=== PATIENT | male | born 1960 | race Asian ===

== ENCOUNTER 2016-09-19 07:46 | Day surgery (SDC) | payer OTHER ==
[~2016-09-19] VITALS: Ht 157.5 cm; Wt 64.4 kg
[2016-09-19] VITALS (12 sets, daily range): BP systolic 112–161; BP diastolic 62–91
--- NOTE | 2016-09-19 07:17 | Pre-Procedure Note/Attestation ---
Pre-Procedure Note/Attestation Complete Prior to Procedure Planned Procedure: right Procedure Narrative: shoulder arthroscopy rc repair,sad Indications for Procedure Pre-Operative Diagnosis: right shoulder rct, impingement Attestation I attest that I discussed the nature of the procedure; its benefits; risks and complications; and alternatives (and the risks and benefits of such alternatives ), prior to the procedure, with the patient (or the patient's legal access services representative). I attest that, if there was a reasonable possibility of needing a blood transfusion, the patient (or the patient's legal access services representative) was given the [facility] standardized written summary, pursuant to the [place] Blood Safety Act ([place] Health and Safety Code # 1645, as amended). I attest that I re-evaluated the patient just prior to the surgery and that there has been no change in the patient's H&P, except as documented below: OPAL DE DIOS September 19, 2016 07:17
--- NOTE | 2016-09-19 07:18 | Operative Note - PDOC ---
Operative Note Operative Note Pre-op Diagnosis: right shoulder rct, impingement Procedure: see op report Post-op Diagnosis: same as pre-op plus Operative Findings: consistent w/pre-op dx studies Anesthesia: regional Specimen: none Complications: none Condition: stable Estimated Blood Loss: none Implant(s) used?: Yes OPAL DE DIOS September 19, 2016 07:18
[~2016-09-19 07:46] MED LIST: LOVASTATIN10 MG ORAL; METOPROLOL TART50 M1 ORAL; TRIAMTERENE-HC1 EAC7 ORAL; ceFAZolin 1gm in D5W 55ml IVP ONE; celeBREX 200mg Cap **SURGERY PATIENTS ONLY ORAL ONE; oxyCONTIN 20mg tab ORAL ONE
[2016-09-19] MEDS ORDERED: LR 1000ml 1,000 ML IVLG SCH (08:26)
[2016-09-19] MEDS ORDERED: Metoclopramide 10mg/2ml Inj IVP PRN (08:30)
[2016-09-19] MEDS ORDERED: Oxycodone/Acetaminophen 5-325 ORAL PRN (08:30)
[2016-09-19] MEDS ORDERED: DiphenhydrAMINE 50mg/ml Inj IVP PRN (08:30)
[2016-09-19] MEDS ORDERED: Ketorolac 30mg Inj IV PRN (08:30)
[2016-09-19] MEDS ORDERED: fentaNYL 100 mcg/2 mL IV PRN (08:30)
[2016-09-19] MEDS ORDERED: Hydromorphone 0.5mg/0.5ml inj IVP PRN (08:30)
[2016-09-19] MEDS ORDERED: LORazepam Inj 2mg/ml 1ml IV PRN (08:30)
[2016-09-19] MEDS ORDERED: Ketorolac 60mg Inj IV PRN (08:30)
[2016-09-19] MEDS ORDERED: Atropine Inj 1mg/10ml Syr IV PRN (08:30)
[2016-09-19] MEDS ORDERED: Norco 5mg/325mg tab ORAL PRN ×2 (08:30→14:01)
[2016-09-19] MEDS ORDERED: Midazolam 2mg/2ml Inj IVP PRN (08:30)
[2016-09-19] MEDS ORDERED: Meperidine 25mg/0.5ml Inj IV PRN (08:30)
[2016-09-19] MEDS ORDERED: Norco 7.5mg/325mg tab ORAL PRN (08:30)
--- NOTE | 2016-09-19 08:33 | Anethesia Preoperative Eval ---
Anesthesia Pre-op PMH/ROS General Date of Evaluation: September 19, 2016 Time of Evaluation: 09:47 Anesthesiologist: Donna ASA Score: ASA 2 Mallampati Score Class I : Soft palate, uvula, fauces, pillars visible Class II: Soft palate, uvula, fauces visible Class III: Soft palate, base of uvula visible Class IV: Only hard plate visible Mallampati Classification: Class II Surgeon: Nilson Diagnosis: R Sholuder Pain Surgical Procedure: R Shoulder Arthroscopy, SAD Anesthesia History: none Family History: no anesthesia problems Allergies: Coded Allergies: No Known Allergies (Unverified , 09/18/16) Medications: see eMAR Past Medical History Cardiovascular: Reports: HTN, other - HL Pulmonary: Reports: other - Pneumonia Anesthesia Pre-op Phys. Exam Physician Exam Last Vital Signs Date Time Temp Pulse Resp B/P Pulse Ox O2 Delivery O2 Flow Rate FiO2 09/19/16 08:12 97.8 70 18 134/91 96 Room Air Constitutional: NAD Neurologic: CN 2-12 intact Cardiovascular: RRR Respiratory: CTA Gastrointestinal: S/NT/ND Airway Exam Mallampati Score: Class II MO: limited Neck: Receding Chin ROM: full Teeth: missing, intact Anesthesia Pre-op A/P Risk Assessment & Plan Assessment: ASA 2 Plan: GA, BIS, Supraclavicular Block Status Change Before Surgery: No Pre-Antibiotics Dru Grams Ancef IV Given Within 1 Hr of Incision: Yes Time Given: 10:06 Reece Thompson MD September 19, 2016 08:33
[2016-09-19] MEDS ORDERED: Ropivacaine 5mg/ml Vial 20ml INJ ONE (09:11)
[2016-09-19] MEDS ORDERED: Bupivacaine w/Epi 0.25% 30ml Vial INJ ONE (09:40)
[2016-09-19] MEDS ORDERED: EPINEPHrine 1mg/1ml Amp ONE (09:40)
[2016-09-19] MEDS ORDERED: Dexamethasone 4mg/ml vial ONE (09:45)
[2016-09-19] MEDS ORDERED: Propofol 10mg/ml 20ml IV ONE (09:45)
[2016-09-19] MEDS ORDERED: Midazolam 2mg/2ml Inj ONE (09:45)
[2016-09-19] MEDS ORDERED: Lidocaine 1% MPF 10mg/ml 5ml ONE (09:45)
[2016-09-19] MEDS ORDERED: Alfentanil 2ml Inj ONE (09:45)
[2016-09-19] MEDS ORDERED: LR 1000ml ONE (09:45)
[2016-09-19] MEDS ORDERED: NS Irrig 4000ml IRRIG ONE (09:45)
--- NOTE | 2016-09-19 11:17 | Immediate Post-Op Evaluation ---
Immediate Post-Op Evalulation Immediate Post-Op Evalulation Procedure: R Shoulder Arthroscopy Date of Evaluation: September 19, 2016 Time of Evaluation: 11:19 IV Fluids: 1000 LR Blood Products: 0 Estimated Blood Loss: 10 Urinary Output: 0 Blood Pressure Systolic: 131 Blood Pressure Diastolic: 72 Pulse Rate: 86 Respiratory Rate: 16 O2 Sat by Pulse Oximetry: 98 Temperature (Fahrenheit): 98.2 Pain Score (1-10): 0 Nausea: No Vomiting: No Complications 0 Patient Status: awake, reacts, patent, extubated, none Hydration Status: adequate Dru Grams Ancef IV Given Within 1 Hr of Incision: Yes Time Given: 10:06 Reece Thompson MD September 19, 2016 11:17
--- NOTE | 2016-09-19 11:18 | 48 Hour Post Anesthesia Eval ---
Post Anesthesia Evaluation Procedure: R Shoulder Arthroscopy Date of Evaluation: September 19, 2016 Time of Evaluation: 13:26 Blood Pressure Systolic: 128 0: 82 Pulse Rate: 72 Respiratory Rate: 18 Temperature (Fahrenheit): 98.4 O2 Sat by Pulse Oximetry: 99 Airway: patent Nausea: No Vomiting: No Pain Intensity: 1 Hydration Status: adequate Cardiopulmonary Status: Stable Mental Status/LOC: patient returned to baseline Follow-up Care/Observations: 0 Post-Anesthesia Complications: 0 Follow-up care needed: ready to discharge Reece Thompson MD September 19, 2016 11:18
[2016-09-19] MEDS ORDERED: Tylenol #3 tab (300mg/30mg) ORAL PRN (14:01)
[2016-09-19] MEDS ORDERED: D5 1/2NS 1,000 ML IV SCH (14:01)
[2016-09-19] MEDS ORDERED: HYDROmorphone 1mg/ml Carpuject SUBQ PRN (14:01)
--- NOTE | 2016-09-19 20:29 | Operative Note - Dictated ---
DATE OF OPERATION: 09/19/2016 PREOPERATIVE DIAGNOSES: 1. Right shoulder full-thickness rotator cuff tear. 2. Impingement syndrome. 3. Superior labral tear. POSTOPERATIVE DIAGNOSES: 1. Right shoulder grade 1 SLAP tear. 2. Intraarticular loose body. 3. Right shoulder bursal-sided partial rotator cuff tear. 4. Impingement syndrome. PROCEDURES: 1. Right shoulder intraarticular debridement. 2. Removal of intraarticular loose body of right shoulder. 3. Right shoulder subacromial decompression bursectomy. SURGEON: Yaw Devine M.D. ANESTHESIA: Interscalene and general. INDICATION FOR PROCEDURE: The patient is a gentleman, who has had a significant right shoulder pain. He had continued pain. He had an MRI, which showed possible full-thickness rotator cuff tear. Given that he had failed conservative treatment, he elected to undergo right shoulder arthroscopy and possible rotator cuff repair with subacromial decompression bursectomy. At the time of surgery, the superior labrum was also to be assessed given that he has some paralabral cyst with a degeneration/tear noted on the MRI. Risks, limitations, expectations, and complications of procedure were discussed in detail. DESCRIPTION OF PROCEDURE: An informed consent was obtained. The patient was taken to the operating room and placed under interscalene and general anesthesia. The patient was then carefully placed in a beach-chair position. Time-out was performed. Ancef was administered. Right shoulder was prepped and draped in a sterile manner. A posterolateral skin incision was then made. Trocar was introduced into the glenohumeral joint. There was intraocular loose bodies in the inferior aspect. Anteromedial working was established. This intra-articular loose body was removed. At this point, attention was turned to the superior labrum. There was some grade 1 superior labral tear. This was debrided. The superior labrum was then assessed to make sure that . There is no tenosynovitis along the biceps tendon. The bursal side of the rotator cuff appeared to be intact. At this point, the camera was repositioned in the subacromial space. There is hypertrophic bursal tissue. Complete bursectomy was performed. The undersurface of the acromion was identified. He had a pretty significant acromial spur. Therefore, acromioplasty was started from lateral to medial and completed from posterior to anterior. Once this was done, the bursectomy was carried out posteriorly. Of note, there is areas of bursal-sided rotator cuff tear, but did not appear to be full thickness. Camera was repositioned in the glenohumeral joint to confirm that there was no full-thickness rotator cuff tear. Once that was done, the instruments were removed. Portal sites were closed with 3-0 Monocryl sutures. Steri-Strips and a sterile dressing were applied. The patient was awoken and taken to the recovery room with stable vital signs. EBL: None. COMPLICATIONS: None. SPECIMENS: None. IMPLANTS: None. Yaw Devine M.D. DR: LARA JOB#: [id number] CC:
== END 2016-09-19 14:30 | disposition home or self-care (01) ==
LOC: SUR 07:46
DX: S46.011A Strain of muscle(s) and tendon(s) of the rotator cuff of right shoulder, initial encounter (principal); S43.431A Superior glenoid labrum lesion of right shoulder, initial encounter; M75.41 Impingement syndrome of right shoulder; M24.011 Loose body in right shoulder; V43.92XA Unspecified car occupant injured in collision with other type car in traffic accident, initial encounter; Y92.410 Unspecified street and highway as the place of occurrence of the external cause; Y99.9 Unspecified external cause status; I10 Essential (primary) hypertension; E78.00 Pure hypercholesterolemia, unspecified
CPT/HCPCS: 29819; 29826; J0171; J0690; J1100; J2250; J2405; J2704; J2795; J3490; J7120; 94003; 94150